=== PATIENT | male | born 1945 | race Caucasian/White ===

== ENCOUNTER → 2022-06-20 | Outpatient (BNVA) | payer OTHER, SELFPAY | END | disposition home or self-care (01) | PROVIDERS: PCP Family Medicine; Referring Provider Family Medicine; Visit Provider Urology | DX: I10 Essential (primary) hypertension (principal) ==

== ENCOUNTER → 2024-05-10 | Outpatient (CLI) | payer OTHER, SELFPAY ==
--- NOTE | 2024-05-10 17:00 | XR_ITS ---
Examination: MRI brain without intravenous contrast. Date and time of exam: May 10, 2024 at 1837 hrs. Indications: Several falls beginning August 2023 with injury to the head followed by right head pain mormon pain numbness in the fingers dizziness, chief complaint altered mental status Technique: Multiple axial and sagittal images of the brain obtained. Siemens high-resolution 1.5 [employer] short bore scanners utilized. Sagittal sections, T1-weighted, TR 500, TE 14, are performed. Axial sections proton-density and T2-weighted have been obtained. Inversion recovery axial images, TR 9, 260, TE 111, TI 2500. Diffusion weighted images, axial sections, TR 4800, TE 128, B value 1000 Axial sections, ADC map, TR 4800, TE 128 Findings: Enlargement of the sella turcica is not present. Abnormal Contour left optic globe, clinical correlation advised Prepontine and interpeduncular cisterns are not enlarged. There is no localized enlargement of the medulla or carl. Fourth ventricle and cerebellar tonsils appear normal in position. No subacute area of hemorrhage density is seen. Mass in the cerebellopontine angle region is not evident. Globes symmetrical. Orbital musculature including medial lateral rectus muscles do not exhibit abnormality. Diffusion-weighted images demonstrate no focus of restricted diffusion. Increased white matter signal not significant Mass effect upon the ventricular system is not identified. Impression: Negative for acute hemorrhage mass effect or midline shift No acute infarct No significant chronic microvascular white matter change If meningioma or other cerebral tumor is a clinical consideration, this patient should return for MRI brain images post intravenous contrast
== END | disposition home or self-care (01) ==
PROVIDERS: Referring Provider Internal Medicine; Visit Provider Internal Medicine
DX: G93.89 Other specified disorders of brain (principal)
CPT/HCPCS: 70551

== ENCOUNTER → 2024-09-26 | Outpatient (CLI) | payer OTHER, MEDICARE, SELFPAY ==
--- NOTE | 2024-09-26 14:45 | XR_ITS ---
Examination: MRI of brain without intravenous contrast. MRI brain with intravenous contrast. Date and time of exam:September 26, 2024 1509 hours INDICATIONS: Episodes and numbness in the right hand, frequent falls beginning October 2022 COMPARISON: July 11, 2023 Technique: Multiple axial and sagittal images of the brain to been obtained. Siemens high-resolution 1.52 [employer] short bore scanner utilized. Sagittal sections, T1 weighted images, TR 500, TE 14, are performed. Axial sections proton-density and T2-weighted images have been obtained. Inversion recovery axial images, TR 9260, TE 111, TR 2500. Diffusion weighted images, axial sections, TR 4800, TE 128, B value 1000. Axial sections, ADC map, TR 4800, TE 128. Axial and coronal images were also obtained post 16 cc gadolinium administered intravenously. Findings:: Enlargement of the sella turcica is not present. The optic chiasm and infundibular stalk are not remarkable. There is no localized enlargement of the medulla or carl. Fourth ventricle and cerebellar tonsils appear normal in position. No subacute area of hemorrhage density is seen. Fourth ventricle is midline. Mass in the cerebellopontine angle region is not evident. 7th and 8th nerve complexes exhibit symmetry Globes are symmetrical Orbital musculature including medial lateral rectus muscles do not exhibit abnormality Increased white matter signal is prominent Effacement of the cortical sulcal markings is not identified. Mass effect upon the ventricular system is not identified. Diffusion-weighted images demonstrate no focus of restricted diffusion Contrast images demonstrate no abnormal cerebellar or cerebral enhancement Impression: Negative for acute hemorrhage mass effect or midline shift No acute infarct No abnormal enhancing cerebellar or cerebral lesions
== END | disposition home or self-care (01) ==
DX: R93.0 Abnormal findings on diagnostic imaging of skull and head, not elsewhere classified (principal)
CPT/HCPCS: 70553; A9579

== ENCOUNTER → 2024-11-08 | Outpatient (CLI) | payer OTHER, SELFPAY ==
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
== END | disposition home or self-care (01) ==
PROVIDERS: PCP Internal Medicine; Referring Provider Internal Medicine; Visit Provider Internal Medicine
DX: S43.432A Superior glenoid labrum lesion of left shoulder, initial encounter (principal); X58.XXXA Exposure to other specified factors, initial encounter; M19.012 Primary osteoarthritis, left shoulder; M62.522 Muscle wasting and atrophy, not elsewhere classified, left upper arm
CPT/HCPCS: 73221